=== PATIENT | female | born 1985 ===

== ENCOUNTER 2016-10-23 20:36 | Observation (INO) | payer SELFPAY ==
[2016-10-23 20:40] VITALS: RESP 20
[2016-10-23] MEDS ORDERED: DiphenhydrAMINE 50 mg/ml Inj ONE (20:47)
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
[2016-10-23 22:33] VITALS: BP 136/89; PULSE 116; TEMP 98.9; O2SAT 98
== END 2016-10-23 22:19 | disposition home or self-care (01) ==
LOC: C.ER 20:36 → C.9OBSV 20:51
PROVIDERS: ADMIT Internal Medicine; ATTEND Internal Medicine
DX: F16.10 Hallucinogen abuse, uncomplicated (principal); Z78.1 Physical restraint status

== ENCOUNTER 2016-12-03 00:18 | Observation (INO) | payer SELFPAY ==
[2016-12-03] MEDS ORDERED: ceFAZolin IV 1 gm in Dextrose 1 GM/50 ML BAG IVPB SCH (00:45)
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
[2016-12-03] MEDS ORDERED: ceFAZolin 1 gm FROZEN Premix 1 GM/50 ML ML IVPB ONE (01:00)
[2016-12-03 01:08] LABS: BASO # 0.1 K/uL (0.0-0.2); BASO % 0.4 % (0.0-2.0); EOS # 0.2 K/uL (0.0-0.7); EOS % 1.5 % (0.0-4.0); HEMATOCRIT 38.7 % (34.0-47.0); LYMPH # 4.7 K/uL (1.0-4.3); LYMPH % 31.4 % (20.0-40.0); MEAN CELL VOLUME 94.4 fL (81.0-99.0); MEAN CORPUSCULAR HEMOGLOBIN 30.6 pg (27.0-31.0); MEAN CORPUSCULAR HGB CONC 32.4 g/dL (33.0-37.0); MEAN PLATELET VOLUME 8.7 fL (7.2-11.7); MONO # 0.8 K/uL (0.0-0.8); MONO % 5.2 % (0.0-10.0); RED CELL DISTRIBUTION WIDTH 13.8 % (11.5-14.5)
[2016-12-03 01:16] LABS: ALB/GLOB RATIO 1.3 (1.0-2.1); ALKALINE PHOSPHATASE 76 U/L (38-126); ALT/SGPT 23 U/L (9-52); AST/SGOT 17 U/L (14-36); BILIRUBIN,TOTAL 0.3 mg/dL (0.2-1.3); BLOOD UREA NITROGEN 12 mg/dL (7-17); CARBON DIOXIDE 19 mmol/L (22-30); GFR AFRICAN-AMERICAN > 60; TOTAL PROTEIN 7.2 g/dL (6.3-8.3)
[2016-12-03 01:17] LABS: CALCIUM 8.6 mg/dl (8.6-10.4); GLUCOSE,RANDOM 123 mg/dL (65-105)
[2016-12-03 01:37] LABS: CHLORIDE 110 mmol/L (98-107); POTASSIUM 3.8 mmol/L (3.6-5.2); SODIUM 144 mmol/L (132-148)
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
[2016-12-03] MEDS ORDERED: Sodium Chloride 0.9% 1,000 ML IV SCH (05:45)
[2016-12-03] MEDS ORDERED: Lidocaine/Epi 1% 1:100000 20 ML IJ ONE (05:48)
[2016-12-03] MEDS: Morphine 4 MG/ML VIAL IVP PRN ×2 (06:04→12:39)
[2016-12-03 08:02] VITALS: O2SAT 98
[2016-12-03 08:50] VITALS: BP 105/69; PULSE 84; RESP 18; TEMP 98.6
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
[2016-12-03 11:31] LABS: HEMATOCRIT 36.4 % (34.0-47.0); MEAN CELL VOLUME 95.1 fL (81.0-99.0); MEAN CORPUSCULAR HEMOGLOBIN 31.3 pg (27.0-31.0); MEAN CORPUSCULAR HGB CONC 32.9 g/dL (33.0-37.0); MEAN PLATELET VOLUME 8.8 fL (7.2-11.7); RED CELL DISTRIBUTION WIDTH 13.8 % (11.5-14.5); WHITE BLOOD COUNT 12.3 K/uL (4.8-10.8)
[2016-12-03 11:48] LABS: CHLORIDE 108 mmol/L (98-107)
[2016-12-03 11:49] LABS: POTASSIUM 3.8 mmol/L (3.6-5.2); SODIUM 141 mmol/L (132-148)
[2016-12-03 11:51] LABS: ALB/GLOB RATIO 1.3 (1.0-2.1); AST/SGOT 19 U/L (14-36); BILIRUBIN,TOTAL 0.5 mg/dL (0.2-1.3); CARBON DIOXIDE 25 mmol/L (22-30); GFR AFRICAN-AMERICAN > 60
[2016-12-03 11:52] LABS: ALKALINE PHOSPHATASE 66 U/L (38-126); ALT/SGPT 21 U/L (9-52); BLOOD UREA NITROGEN 11 mg/dL (7-17); CALCIUM 8.7 mg/dl (8.6-10.4); GLUCOSE,RANDOM 104 mg/dL (65-105)
[2016-12-05 17:52] LABS: ACETONE None Detected; ETHANOL None Detected; METHANOL None Detected
== END 2016-12-03 13:38 | disposition home or self-care (01) ==
LOC: C.ER 00:18 → C.6T 03:07
PROVIDERS: ADMIT Surgery; ATTEND Surgery
DX: S31.111A Laceration without foreign body of abdominal wall, left upper quadrant without penetration into peritoneal cavity, initial encounter (principal); S30.1XXA Contusion of abdominal wall, initial encounter; W26.9XXA Contact with unspecified sharp object(s), initial encounter; F17.210 Nicotine dependence, cigarettes, uncomplicated
CPT/HCPCS: 74177; 80053; 82009; 84600; 85025; 85027; 85610; 85730; 86850; 86900; 90471; 90715; 96365; 96375; 99285; G0378; G0480; J0690; J2270; J7040

== ENCOUNTER 2016-12-15 09:33 | Emergency (ER) | payer MEDICAID ==
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
[2016-12-15 09:55] VITALS: PULSE 87; RESP 16; TEMP 97.9; O2SAT 99
[2016-12-15 10:15] VITALS: BP 140/60
== END 2016-12-15 10:13 | disposition home or self-care (01) ==
LOC: C.ER 09:33
DX: Z48.02 Encounter for removal of sutures (principal)